=== PATIENT | male | born 1985 | race Caucasian/White ===

== ENCOUNTER 2017-09-12 13:51 | Emergency (ER) | payer SELFPAY ==
[~2017-09-12] VITALS: Ht 180.3 cm; Wt 83.9 kg
[2017-09-12] MEDS ORDERED: KETOROLAC 30 MG/ML VIAL. IV ONE (15:15)
[2017-09-12] MEDS ORDERED: IV NORMAL SALINE 1,000ML 1,000 ML IV ONE (15:15)
--- NOTE | 2017-09-12 15:19 | PHYS DOC ---
Past History Past Medical History: No Pertinent History Past Surgical History: Other Alcohol Use: None Drug Use: None Adult General Chief Complaint Chief Complaint: ABDOMINAL PAIN [facility] HPI 31-year-old male presents with one-day history of sudden onset left flank pain. Several minutes after the patient woke up this morning, he began to get a cramping, throbbing feeling in his left lateral abdomen. The pain was there nonstop for 2-3 hours. It was an 8 out of 10 at the worst. In the ED, it has decreased to 5 out of 10. It is still a cramping, throbbing sensation. Several weeks ago the patient had sudden onset back pain that lasted for one day and then spontaneously resolved. Other than these 2 episodes, patient has been healthy. He denies any trauma or overuse. He does not think it could be a pulled muscle as he has not been doing anything unusual. He denies nausea or vomiting. He is unable to do comfortable position laying on the bed. He denies dysuria or urinary frequency. He has had darker urine yesterday and today. No fever or chills Review of Systems Review of Systems Constitutional: Denies fever or chills [] Eyes: Denies change in visual acuity, redness, or eye pain [] HENT: Denies nasal congestion or sore throat [] Respiratory: Denies cough or shortness of breath [] Cardiovascular: No additional information not addressed in HPI [] GI: Left-sided abdominal pain[] : Denies dysuria or hematuria [] Musculoskeletal: Denies back pain or joint pain [] Integument: Denies rash or skin lesions [] Neurologic: Denies headache, focal weakness or sensory changes [] Endocrine: Denies polyuria or polydipsia [] All other systems were reviewed and found to be within normal limits, except as documented in this note. Current Medications Current Medications Current Medications Medications (Trade) Dose Ordered Sig/Lulu Start Time Stop Time Status Last Admin Dose Admin Ketorolac Tromethamine (Toradol) 30 mg 1X ONCE 09/12/17 15:15 09/12/17 15:16 Sodium Chloride 1,000 ml @ 1,000 mls/hr 1X ONCE 09/12/17 15:15 09/12/17 16:14 Allergies Allergies Allergies Coded Allergies Type Severity Reaction Last Updated Verified No Known Drug Allergies 09/12/17 No Physical Exam Physical Exam Constitutional: Well developed, well nourished, no acute distress, non-toxic appearance. [] HENT: Normocephalic, atraumatic, bilateral external ears normal, oropharynx moist, no oral exudates, nose normal. [] Eyes: PERRLA, EOMI, conjunctiva normal, no discharge. [] Neck: Normal range of motion, no tenderness, supple, no stridor. [] Cardiovascular:Heart rate regular rhythm, no murmur [] Lungs & Thorax: Bilateral breath sounds clear to auscultation [] Abdomen: Mild left upper quadrant abdominal pain with palpation[] Skin: Warm, dry, no erythema, no rash. [] Back: No tenderness, mild CVA tenderness on left. [] Extremities: No tenderness, no cyanosis, no clubbing, ROM intact, no edema. [] Neurologic: Alert and oriented X 3, normal motor function, normal sensory function, no focal deficits noted. [] Psychologic: Affect normal, judgement normal, mood normal. [] Current Patient Data Vital Signs Vital Signs Date Time Temp Pulse Resp B/P (MAP) Pulse Ox O2 Delivery O2 Flow Rate FiO2 09/12/17 14:00 97.8 85 18 99 Room Air EKG EKG [] Radiology/Procedures Radiology/Procedures Examination: CT of the abdomen pelvis without contrast HISTORY: History of left-sided flank pain COMPARISON: None available TECHNIQUE: Axial CT images of the abdomen pelvis were performed without contrast. Coronal and sagittal reformats are performed Exposure: One or more of the following individualized dose reduction techniques were utilized for this examination: 1. Automated exposure control 2. Adjustment of the mA and/or kV according to patient size 3. Use of iterative reconstruction technique FINDINGS: Minimal left lung base atelectasis. No evidence of free air identified in the abdomen Mild hepatomegaly. The spleen measures 13.5 cm in length. In the anterior aspect of the spleen, there is a linear hypodensity measuring up to 3.3 cm. A larger ill-defined hypodensity identified in the posterior superior aspect of the spleen. Gallbladder is mildly distended. The stomach is mildly distended. The visualized pancreas grossly appears unremarkable. The small bowel is nondilated. The appendix is normal. Feces and gas noted in the colon. Urinary bladder is mildly distended. No evidence of intrarenal collecting system calculi or hydronephrosis. The caliber of the aorta grossly appears unremarkable Urinary bladder is mildly distended. Minimal thickening of the urinary bladder wall. No evidence of lytic bony destructive lesion. IMPRESSION: 1. No evidence of intrarenal collecting system calculi or hydronephrosis. 2. Hypodensity identified in the anterior aspect of the spleen measuring up to 3.3 cm and the larger ill-defined hypodensity identified in the posterior superior aspect of the spleen, nonspecific etiology , splenic infarcts are not excluded. 3. Minimal questionable wall thickening of the urinary bladder. Nonspecific correlate for cystitis. 4. Mild hepatosplenomegaly. Electronically signed by: Gerardo Donaldson MD (09/12/2017 3:31 PM) [id number][] Course & Med Decision Making Course & Med Decision Making Pertinent Labs and Imaging studies reviewed. (See chart for details) CT of the abdomen and pelvis does not show any stones. It does show a hypodensity in the spleen and mild hepatosplenomegaly. I'm unsure why this is the case for the patient. I encouraged him to follow-up with the PCP for further evaluation. The patient's lab results are unremarkable except for a low platelet count of 101. He is not low enough to consider transfusion. I advised that he also consider referral to hematology from his PCP. [] Dragon Disclaimer Dragon Disclaimer This electronic medical record was generated, in whole or in part, using a voice recognition dictation system. Departure Departure: Referrals: PCP,UNKNOWN (PCP) DORYS SYKES DO September 12, 2017 15:19
--- NOTE | 2017-09-12 15:34 | RAD ---
Examination: CT of the abdomen pelvis without contrast HISTORY: History of left-sided flank pain COMPARISON: None available TECHNIQUE: Axial CT images of the abdomen pelvis were performed without contrast. Coronal and sagittal reformats are performed Exposure: One or more of the following individualized dose reduction techniques were utilized for this examination: 1. Automated exposure control 2. Adjustment of the mA and/or kV according to patient size 3. Use of iterative reconstruction technique FINDINGS: Minimal left lung base atelectasis. No evidence of free air identified in the abdomen Mild hepatomegaly. The spleen measures 13.5 cm in length. In the anterior aspect of the spleen, there is a linear hypodensity measuring up to 3.3 cm. A larger ill-defined hypodensity identified in the posterior superior aspect of the spleen. Gallbladder is mildly distended. The stomach is mildly distended. The visualized pancreas grossly appears unremarkable. The small bowel is nondilated. The appendix is normal. Feces and gas noted in the colon. Urinary bladder is mildly distended. No evidence of intrarenal collecting system calculi or hydronephrosis. The caliber of the aorta grossly appears unremarkable Urinary bladder is mildly distended. Minimal thickening of the urinary bladder wall. No evidence of lytic bony destructive lesion. IMPRESSION: 1. No evidence of intrarenal collecting system calculi or hydronephrosis. 2. Hypodensity identified in the anterior aspect of the spleen measuring up to 3.3 cm and the larger ill-defined hypodensity identified in the posterior superior aspect of the spleen, nonspecific etiology , splenic infarcts are not excluded. 3. Minimal questionable wall thickening of the urinary bladder. Nonspecific correlate for cystitis. 4. Mild hepatosplenomegaly. Electronically signed by: Gerardo Donaldson MD (09/12/2017 3:31 PM) [id number]
[2017-09-12 16:03] LABS: CALCIUM 8.9 mg/dL (8.5-10.1); GFR 86.1; POTASSIUM 4.2 mmol/L (3.5-5.1)
[2017-09-12 16:43] LABS: BASO # 0.1 x10^3/uL (0.0-0.2); BASO % 1 % (0-3); EOS # 0.1 x10^3/uL (0.0-0.7); EOS % 1 % (0-3); HEMATOCRIT 49.9 % (39.0-53.0); HEMOGLOBIN 17.4 g/dL (13.0-17.5); LYMPH # 3.8 x10^3/uL (1.0-4.8); LYMPH % 39 % (24-48); MEAN CORPUSCULAR HEMOGLOBIN 31 pg (25-35); MEAN CORPUSCULAR HGB CONC 35 g/dL (31-37); MEAN CORPUSCULAR VOLUME 90 fL (79-100); MONO # 0.7 x10^3/uL (0.0-1.1); MONO % 8 % (0-9); NEUT # 5.1 x10^3uL (1.8-7.7); NEUT % 52 % (31-73); PLATELET COUNT 101 x10^3/uL (140-400); RED BLOOD COUNT 5.55 x10^6/uL (4.30-5.70); RED CELL DISTRIBUTION WIDTH 12.8 % (11.5-14.5); WHITE BLOOD COUNT 9.8 x10^3/uL (4.0-11.0)
[2017-09-12 17:15] VITALS: BP 142/81
[2017-09-12 21:15] LABS: PLATELET CLUMP PRESENT
[2017-09-12 21:16] LABS: PLT ESTIMATE DECREASED (ADEQUATE)
== END 2017-09-12 17:26 | disposition home or self-care (01) ==
LOC: ER 13:51
DX: R16.2 Hepatomegaly with splenomegaly, not elsewhere classified (principal)
CPT/HCPCS: 36415; 74176; 80048; 83690; 85025; 96374; 99285; J1885; J7030